=== PATIENT | female | born 1935 | race Caucasian/White ===

== ENCOUNTER 2017-05-16 16:40 | Inpatient (IN) | payer MEDICARE, OTHER ==
[~2017-05-16] VITALS: Ht 152.4 cm; Wt 69.4 kg
--- NOTE | ~2017-05-16 | H ---
[address] [address] HISTORY AND PHYSICAL Name: NGUYỄN DUFF Room: [address] ADM IN M.R.#: [id number] Admission: 05/16/17 Attend Phys: Farooq Lei MD Discharge: Date of : 35 Report #: [id number] THIS REPORT FOR: //name// For GI report, please see the Provation report in Perceptive 7 content. By: 0639Medical Records Staff VANESSA /OCTAVIA
[~2017-05-16 16:40] MED LIST: ASPERDRINK81 MG PO; CARDIZEM CD120 MG PO; CELEXA10 MG; CELEXA20 MG PO; CHILDREN'S ASPI81 M1 PO; FISH OIL 1,001000 M2 PO; LEVOTHYROXIN0.125 M1 PO; LIPITOR10 MG PO; MOBIC7.5 MG PO; OSTERA TABLET1 EAC1 PO; PROPAFENONE 15150 MG PO; TOPROL XL25 MG PO; VIT C-ROSE HIP500 MG; VITAMIN C500 MG/15 PO; VITAMIN D1000 UNI1 PO; XARELTO20 MG PO; ZOLOFT100 MG PO
[2017-05-16 19:30] VITALS: BP 147/87
[2017-05-16 19:58] LABS: HEMATOCRIT 39.5 % (37.0-47.0); HEMOGLOBIN 13.6 gm/dL (12.0-15.0); MCH 34.1 pg (26.0-34.0); MCHC 34.4 g/dL (28.0-37.0); MCV 99.2 fL (80.0-100.0); MPV 6.8 fl. (7.2-11.1); RBC 3.98 mil/uL (4.20-5.00); RDW-CV 13.4 % (10.5-14.5); WBC 9.3 thou/uL (4.0-11.0)
[2017-05-16 20:05] LABS: CALCIUM 8.7 mg/dL (8.5-10.1); POTASSIUM 4.1 mmol/L (3.5-5.1)
[2017-05-16 20:10] LABS: ALBUMIN 2.5 g/dL (3.4-5.0); TOTAL BILIRUBIN 0.4 mg/dL (<0.1-1.0); TOTAL PROTEIN 5.7 g/dL (6.4-8.2)
[2017-05-16] MEDS ORDERED: RYTHMOL SR225 MG PO (21:43)
[2017-05-16] MEDS ORDERED: DIGOXIN250 MCG PO (21:45)
[2017-05-17 00:24] VITALS: BP 132/67
[2017-05-17 01:35] LABS: URINE BILIRUBIN NEGATIVE (Negative); URINE BLOOD 2+ (Negative); URINE CLARITY CLEAR; URINE COLOR YELLOW; URINE GLUCOSE-RANDOM NEGATIVE (Negative); URINE KETONES NEGATIVE (Negative); URINE PROTEIN NEGATIVE (Negative); URINE UROBILINOGEN 0.2 E.U./dl (0.2-1.0)
[2017-05-17 01:36] LABS: URINE LEUKOCYTES-REFLEX 2+ (Negative); URINE NITRITE-REFLEX POSITIVE (Negative)
[2017-05-17 01:58] LABS: BACTERIA-REFLEX >30 Many /HPF (None Seen); CASTS None Seen /LPF (None Seen); CRYSTALS None Seen /LPF (None Seen); MUCUS 0-3 Light strn/LPF (None Seen); SQUAMOUS 0-3 Few /LPF (0-3); URINE WBC-REFLEX >25 Many /HPF (0-5); WBC CLUMPS Moderate (None Seen)
[2017-05-17 04:14] VITALS: BP 118/49
[2017-05-17 04:42] LABS: HEMATOCRIT 39.5 % (37.0-47.0); HEMOGLOBIN 13.9 gm/dL (12.0-15.0); MCH 34.9 pg (26.0-34.0); MCHC 35.2 g/dL (28.0-37.0); MCV 99.3 fL (80.0-100.0); MPV 7.3 fl. (7.2-11.1); RBC 3.97 mil/uL (4.20-5.00); RDW-CV 13.3 % (10.5-14.5); WBC 8.1 thou/uL (4.0-11.0)
--- NOTE | 2017-05-17 05:45 | NUR ---
NPO SINCE [place] EXCEPT FOR SIPS WITH MEDS
[2017-05-17 08:15] VITALS: BP 108/61
[2017-05-17 11:47] VITALS: BP 134/79
--- NOTE | 2017-05-17 14:11 | 2DMMODE ---
[place] [address] 2 D/M-MODE ECHOCARDIOGRAM Name: NGUYỄN DUFF Room: [address] IN .R.#: [id number] Admission: 05/16/17 Attend Phys: Farooq Lei, Discharge: Date of : 35 Date of Service: 05/17/17 1411 Report #: [id number] THIS REPORT FOR: //name// APPROVED REPORT Study performed: 05/17/2017 11:00:29 EXAM: Comprehensive 2D, Doppler, and color-flow Echocardiogram Patient Location: In-Patient Room #: [facility] Status: routine BSA: 1.67 HR: 67 bpm BP: 108/61 mmHg Rhythm: Atrial Fibrillation Other Information Study Quality: Good Indications Atrial Fibrillation Elevated Troponin 2D Dimensions LVEF(%): 63.50 (>50%) IVSd: 14.55 (7-11mm) LVOT Diam: 20.86 (18-24mm) LVDd: 35.78 mm PWd: 14.69 (7-11mm) Ascending Ao: 35.78 (22-36mm) LVDs: 23.72 (25-40mm) Aortic Root: 33.38 mm Bolanos's LVEF: 63.50 % Volumes Left Atrial Volume (Systole) LA ESV Index: 48.10 mL/m2 Aortic Valve AoV Peak Lenin.: 1.13 m/s AO Peak Gr.: 5.09 mmHg LVOT Max P.12 mmHg AO Mean Gr.: 2.82 mmHg LVOT Mean P.05 mmHg LVOT Max V: 1.01 m/s AO V2 VTI: 17.89 cm LVOT Mean V: 0.65 m/s ASHLYN (VTI): 3.15 cm2 LVOT V1 VTI: 16.47 [place] [address] 2 D/M-MODE ECHOCARDIOGRAM Name: NGUYỄN DUFF Room: [address] IN .R.#: [id number] Admission: 05/16/17 Attend Phys: Farooq Lei, Discharge: Date of : 35 Date of Service: 05/17/17 1411 Report #: [id number] MV Decel. Time: 120.28 ms MV PHT: 34.88 ms MVA (PHT): 6.31 cm2 TDI Medial E' Lenin.: 0.09 m/s Lateral E' Lenin.: 0.14 m/s Pulmonary Valve PV Peak Lenin.: 1.05 m/s PV Peak Gr.: 4.42 mmHg Tricuspid Valve TR Peak Gr.: 24.70 mmHg RVSP: 29.00 mmHg Left Ventricle The left ventricle is normal size. There is normal LV segmental wall motion. Mild concentric left ventricular hypertrophy. Left ventricular systolic function is normal. The left ventricular ejection fraction is within the normal range. LVEF is 60-65%. This study is not technically sufficient to allow evaluation of the LV diastolic function due to atrial fibrillation. Right Ventricle The right ventricle is normal size. The right ventricular systolic function is normal. Atria Left atrium is moderately dilated. The right atrium size is normal. Aortic Valve Mild aortic valve sclerosis. No aortic regurgitation is present. There is no aortic valvular stenosis. Mitral Valve The mitral valve is normal in structure. Trace mitral regurgitation. No evidence of mitral valve stenosis. Tricuspid Valve The tricuspid valve is normal in structure. Mild tricuspid regurgitation. The RVSP is ____29___ mmHg. Pulmonic Valve The pulmonary valve is normal in structure. Mild [place] [address] 2 D/M-MODE ECHOCARDIOGRAM Name: NGUYỄN DUFF Room: [address] IN [facility].#: [id number] Admission: 05/16/17 Attend Phys: Farooq Lei, Discharge: Date of : 35 Date of Service: 05/17/17 1411 Report #: [id number] Great Vessels The aortic root is normal in size. IVC is normal in size and collapses with >50% inspiration Pericardium There is no pericardial effusion. <Conclusion> The left ventricle is normal size. Mild concentric left ventricular hypertrophy. Left ventricular systolic function is normal. The left ventricular ejection fraction is within the normal range. LVEF is 60-65%. The right ventricle is normal size. Left atrium is moderately dilated. Mild aortic valve sclerosis. No aortic regurgitation is present. There is no aortic valvular stenosis. The mitral valve is normal in structure. Trace mitral regurgitation. The tricuspid valve is normal in structure. Mild tricuspid regurgitation. The RVSP is ____29___ mmHg. IVC is normal in size and collapses with >50% inspiration There is no pericardial effusion. There is normal LV segmental wall motion. <ELECTRONICALLY SIGNED> By: Abdulkadir Hale MD, FACC 05/17/17 141 10 10 Abdulkadir Hale MD, FACC /INF
--- NOTE | 2017-05-17 15:21 | NUR ---
CM ASSESSMENT: Pt is A&O. Normally resides at home alone in [place], [place], in a senior housing community. The community offers a nurse through [facility], that can come in and check on the residents of the community. Pt had been independent, worked at the [employer] up until she had a knee replacement in February. From that surgery, Pt went to an acute rehab in [place], then moved in with her dtr, in the [place], [place] area to complete HH services with [facility]. Pt had since returned to [place] to do outpt therapy. While in [place], Pt became weak and had at least 2 falls, which prompted Pt's children to go and get her from [place], she then went to a hospital near Pt's dtr and was then transferred to [facility] d/t [facility], and she sees Dr Che. Pt's goal is to return home to [place], but is willing to do a skilled stay prior to that. Pt has supportive friends in [place], but most of Pt's children either live in this immediate area or in [place]. Pt reports stomach issues and stated that she has not been able to tolerate much food intake. Discussed skilled options, Pt is in agreement with going skilled, but prefers to not be in a facility where the LTC residents are housed with the skilled residents. Heike from [facility], here to meet with Pt and dtr. Anticipate dc within the next few days. Cardiology following.
--- NOTE | 2017-05-17 15:49 | NUR ---
RECEIVED REPORT AND ASSUMED CARE AT 0730. VSS. CARDIAC MONITORING IN PLACE. PT DENIES ANY COMPLAINTS OF PAIN. PT UP WITH ASSIST TO BSC, ON RA. ASSESSMENT COMPLETED CHARTED. DISCUSSED PLAN OF CARE WITH PT, VERBALIZED UNDERSTANDING. BED IN LOWEST POSITION, CALL LIGHT WITHIN REACH, BED ALARM ON. WILL CONTINUE TO MONITOR FOR REMAINDER OF THE SHIFT
[2017-05-17 16:01] VITALS: BP 119/65
--- NOTE | 2017-05-17 17:03 | NUR ---
PT IN ROOM RESTING. VSS. CADIAC MONITORING IN PLACE. PT UP WITH ASSISTANCE TO BSC. PT ON RA. PT HAD COMPLAINTS OF NAUSEA ON THIS SHIFT, PRN ZOFRAN GIVEN. PT REFERRED TO REHAB CENTER ON DISCHARGE. CASE MANAGEMENT AWARE. PT PROGRESSING TOWARDS GOALS. PT DENIES COMPLAINTS OF PAIN. BED IN LOWEST POSITION, CALL LIGHT WITHIN REACH, BED ALARM ON. WILL CONTINUE TO MONITOR FOR REMAINDER OF THE SHIFT.
[2017-05-17 20:19] VITALS: BP 125/51
[2017-05-18] VITALS: BP 111/89
[2017-05-18 04:00] VITALS: BP 132/65
[2017-05-18 05:39] LABS: CALCIUM 8.5 mg/dL (8.5-10.1); POTASSIUM 4.3 mmol/L (3.5-5.1)
[2017-05-18 05:48] LABS: ABSOLUTE EOSINOPHILS 0.1 thou/uL (0.0-0.7); ABSOLUTE LYMPHOCYTES 1.5 thou/uL (0.8-5.3); ABSOLUTE NEUTROPHILS 5.7 thou/uL (1.6-8.1); BASOPHILS 0.3 %; EOSINOPHILS 1.4 %; HEMATOCRIT 39.2 % (37.0-47.0); HEMOGLOBIN 13.6 gm/dL (12.0-15.0); MCH 34.2 pg (26.0-34.0); MCHC 34.6 g/dL (28.0-37.0); MCV 98.9 fL (80.0-100.0); MONOCYTES 11.6 %; MPV 7.4 fl. (7.2-11.1); NUCLEATED RBCS 0 /100WBC; PLATELET COUNT* 286 thou/uL (150-400); POLYS 68.7 %; RBC 3.97 mil/uL (4.20-5.00); WBC 8.2 thou/uL (4.0-11.0)
--- NOTE | 2017-05-18 08:02 | NUR ---
PT IS ABLE TO COMMUNICATE HER NEEDS TO STAFF EFFECTIVELY, BUT IS FORGETFUL AT TIMES. SHE HAS DENIED THE NEED FOR PAIN MEDICATION UP TO THIS TIME; SHE HAS HAD SOME ABD DISCOMFORT THAT SHE SAYS FEELS LIKE GAS; SHE HAS SIMETHICONE PRN. PT AND OT ARE WORKING WITH HER.
[2017-05-18 11:30] VITALS: BP 125/63
--- NOTE | 2017-05-18 12:21 | NUR ---
[facility] able [facility]. GI consulted, Pt to have CT abd today. Provided son with DPOA paperwork, plan is to discuss with siblings this evening. CM to discuss with Pt tomorrow.
[2017-05-18 16:00] VITALS: BP 112/60
[2017-05-18 20:41] VITALS: BP 96/52
[2017-05-19] VITALS: BP 113/64
[2017-05-19 03:08] LABS: ABSOLUTE EOSINOPHILS 0.1 thou/uL (0.0-0.7); ABSOLUTE LYMPHOCYTES 1.5 thou/uL (0.8-5.3); ABSOLUTE NEUTROPHILS 5.8 thou/uL (1.6-8.1); BASOPHILS 0.4 %; EOSINOPHILS 1.1 %; HEMATOCRIT 37.1 % (37.0-47.0); HEMOGLOBIN 12.9 gm/dL (12.0-15.0); LYMPHOCYTES 18.2 %; MCH 34.2 pg (26.0-34.0); MCHC 34.7 g/dL (28.0-37.0); MCV 98.5 fL (80.0-100.0); MONOCYTES 11.8 %; MPV 6.9 fl. (7.2-11.1); NUCLEATED RBCS 0 /100WBC; PLATELET COUNT* 285 thou/uL (150-400); POLYS 68.5 %; RBC 3.77 mil/uL (4.20-5.00); WBC 8.4 thou/uL (4.0-11.0)
[2017-05-19 03:15] LABS: CREATININE 0.9 mg/dL (0.6-1.3)
[2017-05-19 03:16] LABS: INR 1.1
--- NOTE | 2017-05-19 08:05 | NUR ---
PT IS ABLE TO COMMUNICATE HER NEEDS TO STAFF EFFECTIVELY. SHE HAS DENIED THE NEED FOR PAIN MEDICATION UP TO THIS TIME. SHE HAS BEEN NPO SINCE MIDNIGHT FOR A EGD AND COLONOSCOPY TENTATIVELY SCHEDULED FOR TODAY; BOWEL PREP WAS BEGUN AT APPROX. 2100 ON 05/18 PER MD REQUEST.
[2017-05-19 09:00] VITALS: BP 129/62
--- NOTE | 2017-05-19 10:01 | NUR ---
Pt should be ready to dc today, pending EGD/colon results. Updated Heike at [facility] of potential dc. Following.
[2017-05-19 11:49] VITALS: BP 120/57
--- NOTE | 2017-05-19 13:29 | NUR ---
ASSUMED PT CARE AT 0700 PT IS ALERT AND ORIENTED X 4 PT IS A FALL RISK BED ALARM IS ON PT IS UP WITH SBA, TALKED WITH CARDIOLOGY NURSE THIS AM AND NOTIFED THAT PT NEEDS CLEARANCE FOR EGD/COLONOSCOPY SCHEDULED FOR TODAY NURSE SPOKE WITH JOEL NURSE PRACTITIONER AND NOTIFED HER THIS NURSE DID SPEAK WITH JOEL WHO STATED SHE WAS AWARE AWAITING CLEARANCE, GAVE ENEMA AT 1300 ANOTHER ONE IS NEEDED AT 1400, PT IS NPO WITH EXCEPTION OF MEDS CAN BE GIVEN WITH SIPS OF WATER, PT DENIES PAIN OR CRAMPING IN ABDOMEN STATES SHE FEELS BETTER PT DENIES SOA ON RA, WILL CONTINUE TO MONITOR
[2017-05-19 14:18] VITALS: BP 120/57; BP 135/65
--- NOTE | 2017-05-19 16:19 | EKG ---
[place] [address] ELECTROCARDIOGRAM REPORT Name: NGUYỄN DUFF Room: [address] ADM IN M.R.#: [id number] Admission: 05/16/17 Attend Phys: Farooq Lei MD Discharge: Date of : 35 Report #: [id number] THIS REPORT FOR: //name// [facility] Test Date: 2017-05-19 Test Time: 08:15:15 Pat Name: NGUYỄN DUFF Department: Room: [address] Gender: F Mold Injector: 14 : 1935 Requested By: Francisco Nam Order Number: [id number] Reading MD: Abdulkadir Hale Measurements Intervals [place] Rate: 63 P: SD: QRS: -7 QRSD: 86 T: 214 QT: 384 QTc: 394 Interpretive Statements Atrial fibrillation Low voltage, extremity and precordial leads Compared to ECG 04/18/2016 18:06:18 Low QRS voltage now present Ventricular premature complex(es) no longer present Myocardial infarct finding no longer present Electronically Signed On 05-19-2017 16:18:51 CDT by Abdulkadir Hale [email or web address] <ELECTRONICALLY SIGNED> By: Abdulkadir Hale MD, [facility] 05/19/17 1618 4 Abdulkadir Hale MD, [facility] /EPI
[2017-05-19 20:34] VITALS: BP 115/51
[2017-05-20 00:37] VITALS: BP 114/61
[2017-05-20 08:00] VITALS: BP 127/66
--- NOTE | 2017-05-20 08:15 | NUR ---
PT IS ABLE TO COMMUNICATE HER NEEDS TO STAFF EFFECTIVELY. SHE HAS DENIED THE NEED FOR PAIN MEDICATION UP TO THIS TIME. POSSIBLE DISCHARGE LATER TODAY TO A OUTPT REHAB FACILITY.
[2017-05-20 09:40] VITALS: BP 127/66
[2017-05-20 09:41] VITALS: BP 127/66
--- NOTE | 2017-05-20 09:46 | NUR ---
Pt discharging to [facility] skilled today. Faxed dc orders. Chart copied. Nurse report number provided, [phone]. Updated Pt's son in room at bedside. Facility to cotton picker operator at 2pm.
[2017-05-20] MEDS ORDERED: SERTRALINE HCL50 MG PO (10:44)
[2017-05-20] MEDS ORDERED: CIPRO500 MG PO (10:44)
--- NOTE | 2017-05-20 12:03 | NUR ---
CHANGE OF SHIFT BEDSIDE REPORT GIVEN ASSUMED PATIENT CARE PATIENT SEEN IN BED ASLEEP
--- NOTE | 2017-05-20 13:55 | NUR ---
PATIENT DCD TO SNF REPORT GIVEN DC INFORMATION GIVEN AND COPIES SENT IV REMOVED AND PERSONAL BELONGINGS RETURNED ASSISTED OUT VIA WC GOOD CONDITION TO WC VAN
--- NOTE | 2017-05-20 14:37 | S ---
[address] [address] SURGICAL PATH RPT PROCEDURE Name: NGUYỄN DUFF Room: [address] IN M.R.#: [id number] Admission: 05/16/17 Date of : 35 Discharge: 05/20/17 Report #: [id number] Path Case #: [id number] PATHOLOGY REPORT COLLECTION DATE: 05/19/2017 RECEIVED DATE: 05/19/2017 SUBMITTING PHYS: Dr. Francisco Nam OTHER PHYS: Dr. Farooq Lei SPECIMEN(S) RECEIVED: A.Splenic flexure * * * * * * * * * * * * FINAL DIAGNOSIS: Splenic flexure: - Active colitis with ulceration and fibrosis typical of ischemic colitis, negative for granulomas, viral inclusions and dysplasia. COMMENT: The biopsies reveal benign colonic mucosa with a discrete transition to ulceration where there is fibrosis and active inflammation and some preservation of the deepest aspects of crypts adjacent to it. Prominent hyaline thrombi are seen in small capillaries. The viable/non-ulcerated mucosa does not show significant crypt distortion or basal lymphoplasmacytosis to raise a suspicion of inflammatory bowel disease. (ELANA:db; 05/20/2017) PATHOLOGIST: Duane Hawkins M.D. REPORT ELECTRONICALLY SIGNED BY: Duane Hawkins M.D. DATE/TIME: 05/20/2017 14:37 * * * * * * * * * * * * GROSS PATHOLOGY: Received in formalin labeled "July, splenic flexure," are 2 segments of godinez soft tissue measuring 0.9 x 0.2 x 0.2 cm in aggregate dimensions and ranging from 0.4 to 0.5 cm in maximum dimension. The specimen is submitted entirely in cassette A1. (TSD; 05/19/2017) CLINICAL HISTORY: None provided INITIAL CPT CODE(S): A; 00863 Professional services performed [place] [address] SURGICAL PATH RPT PROCEDURE Name: NGUYỄN DUFF Room: [address] IN [facility].#: [id number] Admission: 05/16/17 Date of : 35 Discharge: 05/20/17 Report #: [id number] Path Case #: [id number] [place] [address] Technical services performed by [employer] at [address] [place] [address], [address] [address]. FAX: Gary Juan [employer] [address] [address] PHONE: [phone] DIRECTOR: Neal Saleem M.D. * * * END OF REPORT * * *
--- NOTE | 2017-05-27 15:14 | PROC ---
[address] [address] PROCEDURE REPORT Name: SHERINNGUYỄN Rell Room: [address] IN M.R.#: [id number] Admission: 05/16/17 Attend Phys: Farooq Lei MD Discharge: 05/20/17 Date of : 35 Report #: [id number] THIS REPORT FOR: //name// CC: Farooq Juan DATE OF SERVICE: 05/19/2017 REFERRING PHYSICIAN: Dr. Farooq Lei. PROCEDURE PERFORMED: Esophagogastroduodenoscopy; colonoscopy to the cecum with biopsy. SEDATION USED: Monitored anesthesia care with 390 propofol. SPECIMEN RETRIEVED: Biopsies taken from the suspected ischemic colitis noted at the splenic flexure. INDICATIONS: The patient is a very pleasant 81-year-old white female who has had problems with persistent left upper quadrant pain associated with anorexia, weight loss, abdominal pain and constipation. This is all gotten worse since she had her left knee replaced. She has problem with chronic constipation, which has been worse and she had taken a bunch of laxatives to get her bowels to move. She was admitted to hospital for further evaluation and treatment. On her CT scan, there was some suggestion that she may have some thickening at the level of the splenic flexure or proximal descending colon with some secondary dilation proximal to the same. This may be artifact, but it may be real. In any event, it has been a number of years since she had her last examination of her lower GI tract and the rectum, and she would undergo upper and lower endoscopy today to evaluate her complaints of anorexia, weight loss, abdominal pain and constipation. She and her family were agreeable to the same. See consultation for further details. PHYSICAL EXAMINATION: GENERAL: A pleasant 81-year-old white female, who appears fairly worn out. CARDIOPULMONARY: Revealed a regular rate and rhythm. LUNGS: Clear. ABDOMEN: Soft. She is tender in left upper quadrant. No rebound or guarding noted. DESCRIPTION OF PROCEDURE: An informed consent was obtained from the patient including the nature, risks, benefits and alternatives described. The patient was placed in the left lateral decubitus position with oximetry, [place] [address] PROCEDURE REPORT Name: NGUYỄN DUFF Room: [address]#: [id number] Admission: 05/16/17 Attend Phys: Farooq Lei MD Discharge: 05/20/17 Date of : 35 Report #: [id number] and cardiac monitoring. IV sedation was titrated with medication to effect. The [employer] video upper endoscope was then advanced under direct vision into the esophagus, which appeared completely normal. There was no evidence of esophagitis, rings, webs, or strictures. No evidence for De Santiago's mucosa was noted. The stomach was then entered, insufflated and examined in its entirety and revealed a normal-appearing antrum and body as well as the cardia and fundus on retroflex examination. The patient had 2 cm hiatal hernia. The remainder of the upper GI tract was normal. The pylorus was widely patent, revealing a normal duodenal bulb and distal duodenum. The scope was drawn. The patient was repositioned for colonoscopy. Anal inspection and digital rectal examination was unremarkable. The Olympus video colonoscope was advanced under direct vision to the level of cecum, which was identified by the ileocecal valve and appendiceal orifice. The cecum, ascending, transverse, descending, sigmoid colon were circumferentially inspected. The patient still had some residual liquid stool and some of it was semi-solid, but I was able to wash almost all of it out of the colon to evaluate her colon. Only polyps less than a centimeter would have been missed. These were not significant at age of 81. She did have evidence for some ulceration and inflammation at the level of the splenic flexure or proximal descending colon as I suspected these findings were compatible with ischemic colitis. Biopsies were taken of the same. I did not see anything to suggest Crohn's disease. She did have some mild sigmoid diverticulitis. Remainder of the colon appeared normal. The scope was withdrawn. The patient was extubated and sent to recover room in stable condition. IMPRESSION: 1. A 2 cm hiatal hernia. 2. Otherwise, normal endoscopy. 3. 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 4. Mild sigmoid diverticulosis. 5. Otherwise, normal colonoscopy to the cecum. RECOMMENDATIONS: 1. Begin the patient on some Remeron 7.5 mg at bedtime to help with her appetite, then make sure we will also begin the patient on MiraLax 17 grams once or twice daily to keep her bowels moving on a regular basis. 2. She can follow up with us in about 2-4 weeks to make sure everything is moving well on her bowel frequency and she is feeling stronger. I have [address] [place] [address] PROCEDURE REPORT Name: NGUYỄN DUFF Room: [address] IN M.R.#: [id number] Admission: 05/16/17 Attend Phys: Farooq Lei MD Discharge: 05/20/17 Date of : 35 Report #: [id number] discussed these findings with the patient as well as her family at the bedside after the procedure and up in her room. <ELECTRONICALLY SIGNED> By: Francisco Nam DO 05/27/17 1514 0906 [id number] Nam DO /nt
--- NOTE | 2017-05-27 15:14 | CON ---
[address] [address] CONSULTATION Name: NGUYỄN DUFF Room: [address] IN M.R.#: [id number] Admission: 05/16/17 Attend Phys: Farooq Lei MD Discharge: 05/20/17 Date of : 35 Report #: [id number] THIS REPORT FOR: //name// CC: Farooq Juan MD DICTATED BY: Laurel Borrero [facility] DATE OF SERVICE: 05/18/2017 The patient currently does not have a PCP. She is from out of town. Please note at the time of this dictation, the patient was seen and physically examined by myself. REASON FOR CONSULTATION: Abdominal pain, left-sided. HISTORY OF PRESENT ILLNESS: This is an 81-year-old female who presented to an [facility]. She was staying with her daughter in [place], [place] when she presented there with lot of abdominal discomfort after she had taken some laxatives. She had not gone to the bathroom. She does have ongoing issues with constipation. She normally takes a couple of Dulcolax tablets if she does not go, however, this time it produced a great deal of diarrhea. She denies any recent antibiotic use except that she did have a UTI 2 weeks ago, but she cannot remember how long she took the medicine for. The patient is a poor historian and her son is there to help fill in the gaps for her. It was also noted when she was at [facility], she was in atrial fib and had an elevated troponin and therefore transferred her down here. ALLERGIES: No known drug allergies. MEDICATIONS: From home include metoprolol succinate, levothyroxine, Xarelto, diltiazem, propafenone and digoxin. PAST MEDICAL HISTORY: Hypertension, atrial fib on anticoagulant therapy. She had meningitis at the age of 24. She has got some arthritis, hypothyroidism, hyperlipidemia. 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 She had tubes tied at that time as well. FAMILY HISTORY: Negative for any GI or female cancers. SOCIAL HISTORY: Denies any alcohol, tobacco [place] [address] CONSULTATION Name: NGUYỄN DUFF Room: [address] IN ..#: [id number] Admission: 05/16/17 Attend Phys: Farooq Lei MD Discharge: 05/20/17 Date of : 35 Report #: [id number] REVIEW OF SYSTEMS: Twelve-point review of systems is essentially negative except what is mentioned in the HPI. PHYSICAL EXAMINATION: VITAL SIGNS: Temperature 36.4, pulse 63, respirations 16, blood pressure 125/63. HEART: Regular rate and rhythm. LUNGS: Clear. ABDOMEN: Soft, positive bowel sounds in all 4 quadrants with some left-sided abdominal tenderness noted to palpation. LABORATORY DATA: Hemoglobin is 13.6, hematocrit 39.2, white count is 8.2, platelets 286. Sodium 141, potassium 4.3, chloride 107, CO2 of 28, BUN is 10, creatinine is 1, GFR is 53 and glucose is 105. CT of the abdomen and pelvis is still pending. Chest x-ray was completely normal. IMPRESSION: 1. Abdominal pain, left-sided. 2. Anticoagulant therapy, atrial fibrillation, Xarelto. 3. Chronic constipation. PLAN: 1. CT of the abdomen and pelvis is pending. 2. Labs: Check a TSH. 3. Clear liquid diet after her CT. 4. The patient will need a better bowel regimen prior to discharge. 5. Further recommendations to be made after the CT has been reviewed. Thank you for allowing us to participate in this patient's care. Please do not hesitate to call with any questions in regard to this consult. ADDENDUM REFERRING PHYSICIAN: Dr. Farooq Lei. DISCUSSION: I have seen and examined the patient as well as her labs and her CT scan. I have also talked extensively with her and her children (son and daughter) at the bedside. I am concerned she may have a problem at the level of splenic flexure or the proximal descending colon, there appeared to be some thickening of the same with proximal dilation of the colon with air and stool behind it. It is hard to determine whether this is real or not but given her abdominal pain in the left upper quadrant, anorexia and weight loss, I feel that we need to pursue visualization of the same. Since she has underlying lichen sclerosus and has extremely sensitive paper thin skin, I do not want to do regular bowel prep at this time. Instead, I recommend that we give her [address] [address] CONSULTATION Name: NGUYỄN DUFF Room: [address] IN M.R.#: [id number] Admission: 05/16/17 Attend Phys: Farooq Lei MD Discharge: 05/20/17 Date of : 35 Report #: [id number] enemas plus glass of MiraLax tonight and some soapsuds enemas tomorrow afternoon before we do an upper and lower endoscopy. I have discussed this plan with the patient as well as her family and everyone is in agreement with the same. At the present time, we will hold her Xarelto for procedure and ask Cardiology if it would be okay to do the procedure tomorrow afternoon. I will make further recommendations at that time. <ELECTRONICALLY SIGNED> By: Francisco Nam DO 05/27/17 1514 [id number] Nam DO /nt
--- NOTE | 2017-05-27 15:14 | CON ---
[address] [address] CONSULTATION Name: NGUYỄN DUFF Room: [address] IN M.R.#: [id number] Admission: 05/16/17 Attend Phys: Farooq Lei MD Discharge: 05/20/17 Date of : 35 Report #: [id number] THIS REPORT FOR: //name// CC: Farooq Juan DATE OF SERVICE: 05/18/2017 ADDENDUM This is an addendum to job #[id number] REFERRING PHYSICIAN: Dr. Farooq Lei. DISCUSSION: I have seen and examined the patient as well as her labs and her CT scan. I have also talked extensively with her and her children (son and daughter) at the bedside. I am concerned she may have a problem at the level of splenic flexure or the proximal descending colon, there appeared to be some thickening of the same with proximal dilation of the colon with air and stool behind it. It is hard to determine whether this is real or not but given her abdominal pain in the left upper quadrant, anorexia and weight loss, I feel that we need to pursue visualization of the same. Since she has underlying lichen sclerosus and has extremely sensitive paper thin skin, I do not want to do regular bowel prep at this time. Instead, I recommend that we give her soapsuds enemas plus glass of MiraLax tonight and some soapsuds enemas tomorrow afternoon before we do an upper and lower endoscopy. I have discussed this plan with the patient as well as her family and everyone is in agreement with the same. At the present time, we will hold her Xarelto for procedure and ask Cardiology if it would be okay to do the procedure tomorrow afternoon. I will make further recommendations at that time. <ELECTRONICALLY SIGNED> By: Francisco Nam DO 05/27/17 [id number] Nam DO /nt
== END 2017-05-20 13:52 | DRG 371 ==
LOC: M.3W 16:40 → M.2W 19:08 → M.TBA-ER 19:08 → M.2W 19:14
PROVIDERS: Internal Medicine Gastroenterology; ADMIT Internal Medicine
PROC: 0DBL8ZX Excision of Transverse Colon, Via Natural or Artificial Opening Endoscopic, Diagnostic (ICD-10-PCS; principal; 2017-05-19)
PROC: 0DJ08ZZ Inspection of Upper Intestinal Tract, Via Natural or Artificial Opening Endoscopic (ICD-10-PCS; principal; 2017-05-19)
DX: A04.9 Bacterial intestinal infection, unspecified (principal); K55.039 Acute (reversible) ischemia of large intestine, extent unspecified; N39.0 Urinary tract infection, site not specified; K55.9 Vascular disorder of intestine, unspecified; E44.1 Mild protein-calorie malnutrition; I10 Essential (primary) hypertension; M19.90 Unspecified osteoarthritis, unspecified site; E03.9 Hypothyroidism, unspecified; E78.5 Hyperlipidemia, unspecified; K59.09 Other constipation; K44.9 Diaphragmatic hernia without obstruction or gangrene; K57.30 Diverticulosis of large intestine without perforation or abscess without bleeding; T47.4X5A Adverse effect of other laxatives, initial encounter; E86.0 Dehydration; G47.33 Obstructive sleep apnea (adult) (pediatric); I48.0 Paroxysmal atrial fibrillation; R10.13 Epigastric pain; Z68.29 Body mass index [BMI] 29.0-29.9, adult; Z79.01 Long term (current) use of anticoagulants; Z82.49 Family history of ischemic heart disease and other diseases of the circulatory system

== ENCOUNTER → 2018-09-30 | Outpatient (CLI) | payer MEDICARE, OTHER ==
[~2018-09-30] MED LIST changes: +CIPRO500 MG PO; +DIGOXIN250 MCG PO; +RYTHMOL SR225 MG PO; +SERTRALINE HCL50 MG PO
[2018-09-30 12:56] LABS: ABSOLUTE EOSINOPHILS 0.1 thou/uL (0.0-0.7); ABSOLUTE LYMPHOCYTES 1.5 thou/uL (0.8-5.3); ABSOLUTE MONOCYTES 0.7 thou/uL (0.0-1.2); ABSOLUTE NEUTROPHILS 4.8 thou/uL (1.6-8.1); BASOPHILS 0.5 %; EOSINOPHILS 1.3 %; HEMATOCRIT 42.5 % (37.0-47.0); HEMOGLOBIN 14.5 gm/dL (12.0-15.0); LYMPHOCYTES 20.8 %; MCHC 34.2 g/dL (28.0-37.0); MCV 99.6 fL (80.0-100.0); MONOCYTES 9.6 %; MPV 6.7 fl. (7.2-11.1); NUCLEATED RBCS 0 /100WBC; PLATELET COUNT* 245 thou/uL (150-400); POLYS 67.8 %; RBC 4.27 mil/uL (4.20-5.00); RDW-CV 13.5 % (10.5-14.5)
[2018-09-30 13:12] LABS: ALBUMIN 3.6 g/dL (3.4-5.0); ALKALINE PHOSPHATASE 78 U/L (46-116); ANION GAP 10 mmol/L (7-16); BUN 16 mg/dL (7-18); CALCIUM 8.9 mg/dL (8.5-10.1); CHLORIDE 105 mmol/L (98-107); CHOLESTEROL 166 mg/dL (<200); CO2 27 mmol/L (21-32); GLUCOSE 125 mg/dL (70-99); HDL CHOLESTEROL 39 mg/dL (>40); LDL CHOLESTEROL 97 mg/dL (<100); POTASSIUM 3.9 mmol/L (3.5-5.1); SERUM ASSESSMENT Clear; SGOT 14 U/L (15-37); SGPT 23 U/L (30-65); SODIUM 142 mmol/L (136-145); TC:HDL 4.3 Ratio (Not establshd); TOTAL PROTEIN 6.8 g/dL (6.4-8.2); TRIGLYCERIDE 154 mg/dL (<150); VLDL 31 mg/dL (<40)
== END ==
LOC: M.LAB 12:27
PROVIDERS: Registered Nurse
DX: E78.5 Hyperlipidemia, unspecified (principal); I10 Essential (primary) hypertension; I48.2 Chronic atrial fibrillation

== ENCOUNTER → 2019-02-20 | Outpatient (CLI) | payer MEDICARE, OTHER ==
--- NOTE | 2019-02-20 11:37 | 2DMMODE ---
[place] [address] 2 D/M-MODE ECHOCARDIOGRAM Name: NGUYỄN DUFF Room: [facility]#: [id number] Admission: 02/20/19 Attend Phys: Parris Rivas RN Discharge: Date of : 35 Date of Service: 02/20/19 1137 Report #: [id number] THIS REPORT FOR: //name// APPROVED REPORT Study performed: 02/20/2019 10:05:41 EXAM: Comprehensive 2D, Doppler, and color-flow Echocardiogram Patient Location: Out-Patient BSA: 1.77 HR: 64 bpm BP: 108/61 mmHg Other Information Study Quality: Good Indications Atrial Fibrillation 2D Dimensions IVSd: 14.34 (7-11mm) LVOT Diam: 20.47 (18-24mm) LVDd: 37.18 mm PWd: 11.28 (7-11mm) Ascending Ao: 34.12 (22-36mm) LVDs: 25.39 (25-40mm) Aortic Root: 30.84 mm Volumes Left Atrial Volume (Systole) LA ESV Index: 31.40 mL/m2 Aortic Valve AoV Peak Lenin.: 0.86 m/s AO Peak Gr.: 2.93 mmHg LVOT Max P.68 mmHg AO Mean Gr.: 1.90 mmHg LVOT Mean P.90 mmHg LVOT Max V: 0.65 m/s AO V2 VTI: 15.35 cm LVOT Mean V: 0.45 m/s ASHLYN (VTI): 2.68 cm2 LVOT V1 VTI: 12.50 cm Mitral Valve MV Decel. Time: 145.04 ms MV E Max Lenin.: 0.81 m/s MV PHT: 42.06 ms MVA (PHT): 5.23 [place] [address] 2 D/M-MODE ECHOCARDIOGRAM Name: NGUYỄN DUFF Room: [facility]#: [id number] Admission: 02/20/19 Attend Phys: Parris Rivas RN Discharge: Date of : 35 Date of Service: 02/20/19 1137 Report #: [id number] TDI E/Lateral E': 8.10 E/Medial E': 8.10 Medial E' Lenin.: 0.10 m/s Lateral E' Lenin.: 0.10 m/s Pulmonary Valve PV Peak Lenin.: 0.64 m/s PV Peak Gr.: 1.65 mmHg Tricuspid Valve RAP Estimate: 5.00 mmHg TR Peak Gr.: 19.79 mmHg RVSP: 24.79 mmHg PA Pressure: 24.79 mmHg Left Ventricle The left ventricle is normal size. There is normal LV segmental wall motion. Mild concentric left ventricular hypertrophy. Left ventricular systolic function is normal. The left ventricular ejection fraction is within the normal range. LVEF is 55-60%. This study is not technically sufficient to allow evaluation of the LV diastolic function due to atrial fibrillation. Right Ventricle The right ventricle is normal size. The right ventricular systolic function is normal. Atria Left atrium is mildly dilated. The right atrium size is normal. Aortic Valve Mild aortic valve sclerosis. No aortic regurgitation is present. There is no aortic valvular stenosis. Mitral Valve The mitral valve is normal in structure. Trace mitral regurgitation. No evidence of mitral valve stenosis. Tricuspid Valve The tricuspid valve is normal in structure. Mild tricuspid regurgitation. estimated pa pressure 30 mm Hg Pulmonic Valve The pulmonary valve is normal in structure. There is trace pulmonic [place] [address] 2 D/M-MODE ECHOCARDIOGRAM Name: NGUYỄN DUFF Room: [facility]#: [id number] Admission: 02/20/19 Attend Phys: Parris Rivas RN Discharge: Date of : 35 Date of Service: 02/20/19 1137 Report #: [id number] The aortic root is normal in size. IVC is normal in size and collapses >50% with inspiration. Pericardium There is no pericardial effusion. <Conclusion> Mild concentric left ventricular hypertrophy. LVEF is 55-60%. Left atrium is mildly dilated. Mild aortic valve sclerosis. <ELECTRONICALLY SIGNED> By: Jose Alfred MD, FACC 02/20/19 1137 36 36 Jose Alfred MD, FACC /INF
== END ==
LOC: M.CRD 09:57
DX: I08.2 Rheumatic disorders of both aortic and tricuspid valves (principal); I48.20 Chronic atrial fibrillation, unspecified

== ENCOUNTER 2019-03-23 09:47 | Emergency (ER) | payer MEDICARE, OTHER ==
[~2019-03-23] VITALS: Ht 154.9 cm; Wt 77.1 kg
[2019-03-23] MEDS ORDERED: VITAMIN C60 MG PO (10:12)
[2019-03-23] MEDS ORDERED: VITAMIN E1000 UNIT PO (10:13)
[2019-03-23 10:52] LABS: ABSOLUTE EOSINOPHILS 0.2 thou/uL (0.0-0.7); ABSOLUTE LYMPHOCYTES 1.4 thou/uL (0.8-5.3); ABSOLUTE MONOCYTES 0.7 thou/uL (0.0-1.2); ABSOLUTE NEUTROPHILS 5.7 thou/uL (1.6-8.1); BASOPHILS 0.5 %; EOSINOPHILS 2.2 %; HEMATOCRIT 42.3 % (37.0-47.0); HEMOGLOBIN 14.6 gm/dL (12.0-15.0); LYMPHOCYTES 17.3 %; MCH 34.4 pg (26.0-34.0); MCHC 34.6 g/dL (28.0-37.0); MCV 99.5 fL (80.0-100.0); MONOCYTES 9.3 %; MPV 6.8 fl. (7.2-11.1); NUCLEATED RBCS 0 /100WBC; PLATELET COUNT* 250 thou/uL (150-400); POLYS 70.7 %; RBC 4.25 mil/uL (4.20-5.00); RDW-CV 13.2 % (10.5-14.5)
[2019-03-23 11:04] LABS: POTASSIUM 4.1 mmol/L (3.5-5.1)
[2019-03-23 11:08] LABS: ALBUMIN 3.5 g/dL (3.4-5.0); TOTAL BILIRUBIN 0.7 mg/dL (<0.1-1.0); TOTAL PROTEIN 6.8 g/dL (6.4-8.2)
[2019-03-23] MEDS ORDERED: MEDROLDOSEPACK PO (11:58)
[2019-03-23 12:20] LABS: URINE BILIRUBIN NEGATIVE (Negative); URINE BLOOD NEGATIVE (Negative); URINE CLARITY CLEAR; URINE COLOR YELLOW; URINE GLUCOSE-RANDOM NEGATIVE (Negative); URINE KETONES NEGATIVE (Negative); URINE LEUKOCYTES-REFLEX 1+ (Negative); URINE NITRITE-REFLEX NEGATIVE (Negative); URINE PROTEIN NEGATIVE (Negative); URINE SPECIFIC GRAVITY <= 1.005 (1.005-1.030); URINE UROBILINOGEN 0.2 E.U./dl (0.2-1.0)
[2019-03-23] MEDS ORDERED: KEFLEX500 M1 PO (12:39)
[2019-03-23 12:48] LABS: BACTERIA-REFLEX >30 Many /HPF (None Seen); CASTS None Seen /LPF (None Seen); CRYSTALS None Seen /LPF (None Seen); MUCUS 0-3 Light strn/LPF (None Seen); SQUAMOUS 0-3 Few /LPF (0-3); URINE RBC 0-2 Rare /HPF (0-2); URINE WBC-REFLEX 6-15 Few /HPF (0-5)
[2019-03-23 12:59] VITALS: BP 136/80
== END 2019-03-23 12:59 | disposition home or self-care (01) ==
LOC: M.ERS 09:47
PROVIDERS: Emergency Medicine Emergency Medical Services
DX: S39.012A Strain of muscle, fascia and tendon of lower back, initial encounter (principal); M46.1 Sacroiliitis, not elsewhere classified; N39.0 Urinary tract infection, site not specified; M19.90 Unspecified osteoarthritis, unspecified site; I10 Essential (primary) hypertension; I48.91 Unspecified atrial fibrillation; Z86.018 Personal history of other benign neoplasm; Z91.048 Other nonmedicinal substance allergy status; W18.39XA Other fall on same level, initial encounter; Y92.89 Other specified places as the place of occurrence of the external cause; Y93.89 Activity, other specified; Y99.8 Other external cause status

== ENCOUNTER → 2020-07-31 | Outpatient (CLI) | payer MEDICARE, OTHER ==
[~2020-07-31] MED LIST changes: +KEFLEX500 M1 PO; +MEDROLDOSEPACK PO; +VITAMIN C60 MG PO; +VITAMIN E1000 UNIT PO
[2020-07-31 15:26] LABS: ABSOLUTE EOSINOPHILS 0.1 thou/uL (0.0-0.7); ABSOLUTE LYMPHOCYTES 1.6 thou/uL (0.8-5.3); ABSOLUTE NEUTROPHILS 4.6 thou/uL (1.6-8.1); BASOPHILS 0.4 %; EOSINOPHILS 1.9 %; HEMATOCRIT 39.5 % (37.0-47.0); HEMOGLOBIN 13.6 gm/dL (12.0-15.0); MCH 35.1 pg (26.0-34.0); MCHC 34.5 g/dL (28.0-37.0); MCV 101.6 fL (80.0-100.0); MPV 6.8 fl. (7.2-11.1); NUCLEATED RBCS 0 /100WBC; PLATELET COUNT* 249 thou/uL (150-400); POLYS 62.7 %; RBC 3.88 mil/uL (4.20-5.00); RDW-CV 12.9 % (10.5-14.5); WBC 7.4 thou/uL (4.0-11.0)
[2020-07-31 15:41] LABS: CALCIUM 9.1 mg/dL (8.5-10.1)
== END ==
LOC: M.LAB 14:54
PROVIDERS: ATTEND Nurse Practitioner
DX: I51.7 Cardiomegaly (principal); R06.02 Shortness of breath